=== PATIENT | female | born 1980 | race Caucasian/White ===

== ENCOUNTER → 2017-03-16 | Day surgery (SDC) | payer BC ==
--- NOTE | 2017-03-15 17:08 | GHP ---
[f rep st] PREOP HISTORY AND PHYSICAL PLANNED PROCEDURE: Suction dilation and curettage for a diagnosis of missed . INDICATIONS: The patient is a 36-year-old, 3, para 1-0-1-1, who had her Mirena IUD removed in October of 2016, to see if it was contributing to her menstrual problems and her insomnia before her periods. The patient initially had a longer cycle following her IUD removal, but then saw rope tow operator and then cycles returned to 26 days' on clockwork. The patient was not contracepting because she is currently on Trileptal, and was thought that it could decrease fertility so this was an unplanned but desired . She did have a positive test and had labs drawn at 4 weeks 4 days, which were 4472. She had labs which did increase 48 hours later to 6718, which is not a normal rise. They were repeated 48 hours later, and were 9338 on 02/27. She had an ultrasound done on 03/10, which showed a gestational sac and possibly two 2 mm yolk sacs, and no pole. She had a repeat ultrasound done on 03/15 , which showed gestational sac measuring 7 weeks, 1 day, yolk sac measuring 5 x 4 mm, but no pole, no embryo, and no cardiac activity noted. A diagnosis of missed was made. The patient did have labs drawn again on 03/10, which showed an HCG of 27,000. The patient's blood type is A positive. A long discussion was had about patient's management options. The patient has elected to proceed with a suction dilation and curettage. Risks and benefits have been extensively reviewed with the patient. The patient has been properly consented. MEDICAL HISTORY: Insomnia, mostly cyclical. Seizure disorder. History of cervical dysplasia. MEDICATIONS: Trileptal, vitamin D, progesterone (which she will discontinue), folic acid, and Ambien. SURGICAL HISTORY: Excision of right breast fibroadenoma, left bunionectomy, LEEP excision of cervix. ALLERGIES: No known drug allergies. 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 She denies tobacco or drug use. She does usually have 2 alcoholic beverages a week. FAMILY MEDICAL HISTORY: Noncontributory. SPECIAL AGENT SECRET SERVICE HISTORY: She is 3, para 1-0-1-1. She has had 1 spontaneous in 10/2011. She had 1 vaginal delivery on 09/30/2012, and current is a diagnosis of missed . Patient does have a history of a LEEP excision of her cervix. Recent Paps have been normal. REVIEW OF SYSTEMS: A 10-point review of systems is negative with the exception of she is having some nausea and fatigue associated with symptoms. Otherwise, denies any vaginal bleeding. Other 10-point review of systems is negative. PHYSICAL EXAM: VITAL SIGNS: Stable. GENERAL APPEARANCE: Alert and oriented x3. PSYCH: Appropriate affect. HEENT: Heart rate is regular, regular. LUNGS : Clear to auscultation bilaterally. NECK: Mobile and supple. ABDOMEN: Soft , nondistended, nontender. No organomegaly is noted. EXTREMITIES: No calf tenderness or edema. PELVIC: Mobile, midposition uterus with no adnexal masses. There is a 7-week gestational sac with a yolk sac, with no pole or cardiac activity. LABORATORY DATA: The patient's blood type is A-positive. ASSESSMENT AND PLAN: A 36-year-old, 3, para 1-0-1-1, who is 7 weeks 3 days by dates, with a diagnosis of missed made. Management options were reviewed with the patient. The patient is electing to proceed with a suction dilation and curettage. The patient will sign consent the morning of surgery. /[id number]/MODL MTDD
[~2017-03-16] MED LIST: ACETAMINOPHEN 325 MG TAB PO ONE; ACETAMINOPHEN 500 MG TAB PO PRN; DEXAMETHASONE 4 MG/ML VIAL IVP PRN; DEXAMETHASONE 4 MG/ML VIAL ONE; DOXYCYCLINE HYCLATE 100 MG CAP/TAB PO ONE; HYDROCODONE/APAP 5/325 TAB PO PRN; HYDROmorphONE/DILAUDID 1 MG/ML SYR IVP PRN; KETOROLAC 30 MG/1 ML SDV ONE; LIDOCAINE 2% 100 MG/5 ML SYR ONE; MEPERIDINE 25 MG/ML SYR IVP PRN; MIDAZOLAM 2 MG/2 ML VIAL IVP ONE; MIDAZOLAM 2 MG/2 ML VIAL ONE; NALOXONE HCL 0.4 MG/ML INJ IVP PRN; ONDANSETRON 4 MG/2 ML VIAL IVP PRN; ONDANSETRON 4 MG/2 ML VIAL ONE; OXYCODONE/APAP 5/325 TAB PO PRN; PROMETHAZINE HCL 25 MG/ML INJ IVP PRN; PROPOFOL 200 MG/20 ML VIAL ONE; fentaNYL 100 MCG/2 ML INJ IVP PRN; fentaNYL 100 MCG/2 ML INJ ONE
--- NOTE | 2017-03-16 08:14 | PDANEPAE ---
ANE History of Present Illness for d and c ANE Past Medical History - Pulmonary History Hx Oxygen in Use at Home: No Hx Sleep Apnea: No - Endocrine History Hx Diabetes: No - Neurological & Psychiatric Hx Hx Neurological and Psychiatric Disorders: Yes - Chronic Pain History Chronic Pain: No ANE Review of Systems Review of Systems: ANE Patient History - Allergies Allergies/Adverse Reactions: No Known Allergies Allergy (Unverified 12/03/14 15:46) - Home Medications Home Medications: OXcarbazepine [Trileptal 300mg (RX)] 900 mg PO HS 10/02/12 [Last Taken Unknown] - Smoking Hx Smoking Status: Never smoked ANE Labs/Vital Signs - Vital Signs Height: 160.02 cm Weight: 52.163 kg ANE Physical Exam - Airway Neck exam: FROM Mallampati Score: Class 1 Mouth exam: normal dental/mouth exam - Pulmonary Pulmonary: no respiratory distress - Cardiovascular Cardiovascular: regular rate and rhythym - ASA Status ASA Status: II ANE Anesthesia Plan Anesthesia Plan: GA w LMA
--- NOTE | 2017-03-16 08:45 | POSTANESTH ---
Post Anesthetic Evaluation Cardiovascular Status: Normal, Stable, Similar to Pre-Op Cond Respiratory Status: Normal, Stable, Similar to Pre-op Cond. Level of Consciousness/Mental Status: Can Participate in Eval, Moderately Sleepy Pain Control: Adequate, Prn Tx Ordered Nausea/Vomiting Control: Adequate, Prn Tx Ordered Complications Possibly Related to Anesthesia: None Noted
== END | disposition home or self-care (01) ==
LOC: FOBOP 05:52
PROVIDERS: ATTEND Obstetrics & Gynecology
PROC: 10D17ZZ Extraction of Products of Conception, Retained, Via Natural or Artificial Opening (ICD-10-PCS; principal; 2017-03-16)
DX: O02.1 Missed abortion (principal); G47.00 Insomnia, unspecified; G40.909 Epilepsy, unspecified, not intractable, without status epilepticus; Z87.410 Personal history of cervical dysplasia
CPT/HCPCS: J1100; J1885; J2001; J2250; J2405; J2704; J3010

== ENCOUNTER → 2018-06-19 | Outpatient (CLI) | payer BC | LOC: FIMAGING 10:19 | PROVIDERS: ATTEND Physician Assistant | DX: J20.9 Acute bronchitis, unspecified (principal) ==